=== PATIENT | male | born 1960 | race American Indian/Alaskan Native ===

== ENCOUNTER 2020-12-19 17:55 | Inpatient (IN) | payer OTHER ==
[2020-12-19] MEDS ORDERED: CEFEPIME/NS 1 GM/100 ML 1 GM/100 ML BAG IV ONE (17:57)
[2020-12-19] MEDS ORDERED: methylPREDNISolone Sod Succinate 125 MG/2 ML INJ IV ONE (17:57)
[2020-12-19] MEDS ORDERED: MAGNESIUM SULFATE 2 GM/50 ML BAG IV ONE (17:57)
[2020-12-19] MEDS ORDERED: IPRATROPIUM 0.02% NEBU 2.5 ML IH ONE ×3 (17:57→23:37)
[2020-12-19] MEDS ORDERED: ALBUTEROL 2.5 MG/3 ML NEBU IH ONE ×3 (17:57→23:37)
--- NOTE | 2020-12-19 18:29 | Emergency Department Report ---
ED General Adult HPI - General Chief complaint: Dyspnea/Respdistress Stated complaint: SOB Time Seen by Provider: 12/19/20 17:57 Source: patient Mode of arrival: Stretcher Limitations: No Limitations - History of Present Illness Initial comments: Patient presents to the emergency department chief complaint shortness of breath that started yesterday. Patient has a history of sarcoidosis states he is on steroids secondary to his sarcoidosis. Patient's O2 sats per EMS upon their arrival were 78%. Patient denies any chest pain or abdominal pain. BiPAP was being placed upon me entering the room. The patient is in respiratory distress. -: Gradual Severity scale (0 -10): 0 Consistency: constant Improves with: none Worsens with: none Associated Symptoms: denies other symptoms Treatments Prior to Arrival: none - Related Data Allergies Allergy/AdvReac Type Severity Reaction Status Date / Time shellfish derived Allergy Unknown Verified 12/09/17 04:03 ED Review of Systems ROS: Stated complaint: SOB Other details as noted in HPI Constitutional: denies: chills, fever Eyes: denies: eye pain, eye discharge, vision change ENT: denies: ear pain, throat pain Respiratory: shortness of breath. denies: cough, wheezing Cardiovascular: denies: chest pain, palpitations Endocrine: no symptoms reported Gastrointestinal: denies: abdominal pain, nausea, diarrhea Genitourinary: denies: urgency, dysuria Musculoskeletal: denies: back pain, joint swelling, arthralgia Skin: denies: rash, lesions Neurological: denies: headache, weakness, paresthesias Psychiatric: denies: anxiety, depression Hematological/Lymphatic: denies: easy bleeding, easy bruising ED Past Medical Hx - Past Medical History Previous Medical History?: Yes Hx Asthma: Yes Additional medical history: Sarcoidosis - Social History Smoking Status: Never Smoker Substance Use Type: None (denies illicit drug use), Alcohol (occasional) ED Physical Exam - General Limitations: No Limitations General appearance: alert, in no apparent distress - Head Head exam: Present: atraumatic, normocephalic - Eye Eye exam: Present: normal appearance - ENT ENT exam: Present: mucous membranes moist - Neck Neck exam: Present: normal inspection - Respiratory Respiratory exam: Present: respiratory distress, other (Diminished breath sounds throughout) - Cardiovascular Cardiovascular Exam: Present: normal rhythm, tachycardia. Absent: systolic murmur, diastolic murmur, rubs, gallop - GI/Abdominal GI/Abdominal exam: Present: soft, normal bowel sounds. Absent: distended, tenderness - Rectal Rectal exam: Present: deferred - Extremities Exam Extremities exam: Present: normal inspection - Back Exam Back exam: Present: normal inspection - Neurological Exam Neurological exam: Present: alert, oriented X3 - Psychiatric Psychiatric exam: Present: normal affect, normal mood - Skin Skin exam: Present: warm, dry, intact, normal color. Absent: rash ED Course Vital Signs 12/19/20 12/19/20 12/19/20 17:58 18:01 20:16 Temperature 98.4 F Pulse Rate 106 H 106 H Respiratory 25 H 27 H 26 H Rate Blood Pressure 184/102 165/103 [Right] O2 Sat by Pulse 100 100 100 Oximetry 12/19/20 12/19/20 20:30 22:30 Temperature 98.5 F Pulse Rate 101 H 90 Respiratory 21 23 Rate Blood Pressure 147/88 140/89 [Right] O2 Sat by Pulse 98 96 Oximetry ED Medical Decision Making - Lab Data Result diagrams: 12/19/20 18:13 12/19/20 18:13 Lab Results 12/19/20 12/19/20 12/19/20 Range/Units 18:13 18:13 18:13 WBC 9.3 (4.5-11.0) K/mm3 RBC 4.87 (3.65-5.03) M/mm3 Hgb 12.3 (11.8-15.2) gm/dl Hct 39.4 (35.5-45.6) % MCV 81 L (84-94) fl MCH 25 L (28-32) pg MCHC 31 L (32-34) % RDW 15.5 H (13.2-15.2) % Plt Count 361 (140-440) K/mm3 PT (12.2-14.9) Sec. INR (0.87-1.13) APTT (24.2-36.6) Sec. Sodium 139 (137-145) mmol/L Potassium 3.6 (3.6-5.0) mmol/L Chloride 96.1 L (98-107) mmol/L Carbon Dioxide 30 (22-30) mmol/L Anion Gap 17 mmol/L BUN 10 (9-20) mg/dL Creatinine 0.7 L (0.8-1.3) mg/dL Estimated GFR > 60 ml/min BUN/Creatinine Ratio 14 % Glucose 107 H (75-100) mg/dL Lactic Acid 1.50 (0.7-2.0) mmol/L Calcium 8.2 L (8.4-10.2) mg/dL Magnesium 1.90 (1.7-2.3) mg/dL Total Bilirubin 0.30 (0.1-1.2) mg/dL AST 21 (5-40) units/L ALT 27 (7-56) units/L Alkaline Phosphatase 84 (35-129) units/L Troponin T (0.00-0.029) ng/mL Total Protein 7.0 (6.3-8.2) g/dL Albumin 3.9 (3.9-5) g/dL Albumin/Globulin Ratio 1.3 % 12/19/20 12/19/20 Range/Units 18:13 18:13 WBC (4.5-11.0) K/mm3 RBC (3.65-5.03) M/mm3 Hgb (11.8-15.2) gm/dl Hct (35.5-45.6) % MCV (84-94) fl MCH (28-32) pg MCHC (32-34) % RDW (13.2-15.2) % Plt Count (140-440) K/mm3 PT 14.1 (12.2-14.9) Sec. INR 0.98 (0.87-1.13) APTT 24.1 L (24.2-36.6) Sec. Sodium (137-145) mmol/L Potassium (3.6-5.0) mmol/L Chloride (98-107) mmol/L Carbon Dioxide (22-30) mmol/L Anion Gap mmol/L BUN (9-20) mg/dL Creatinine (0.8-1.3) mg/dL Estimated GFR ml/min BUN/Creatinine Ratio % Glucose (75-100) mg/dL Lactic Acid (0.7-2.0) mmol/L Calcium (8.4-10.2) mg/dL Magnesium (1.7-2.3) mg/dL Total Bilirubin (0.1-1.2) mg/dL AST (5-40) units/L ALT (7-56) units/L Alkaline Phosphatase (35-129) units/L Troponin T < 0.010 (0.00-0.029) ng/mL Total Protein (6.3-8.2) g/dL Albumin (3.9-5) g/dL Albumin/Globulin Ratio % - EKG Data -: EKG Interpreted by Me EKG shows normal: sinus rhythm Rate: tachycardia - Radiology Data Radiology results: report reviewed - Medical Decision Making Patient immediately placed on BiPAP 2 continuous breathing treatments given IV antibiotics given Discussed results with patient ABG pH 7.309 PCO2 64.9 PO2 107.2 Bicarb 31.9 Base excess is 3.7 Critical Care Time: Yes Critical care time in (mins) excluding proc time.: 35 Critical care attestation.: If time is entered above; I have spent that time in minutes in the direct care of this critically ill patient, excluding procedure time. ED Disposition Clinical Impression: Respiratory failure Disposition: ADMITTED INPATIENT Is pt being admited?: Yes Does the pt Need Aspirin: No Condition: Fair Referrals: PRIMARY CARE, [Primary Care Provider] - 3-5 Days
[2020-12-19 18:34] LABS: Hematocrit 39.4 % (35.5-45.6); Hemoglobin 12.3 gm/dl (11.8-15.2); Mean Corpuscular HGB Conc 31 % (32-34); Mean Corpuscular Volume 81 fl (84-94); Platelet Count 361 K/mm3 (140-440); Red Blood Count 4.87 M/mm3 (3.65-5.03); Red Cell Distribution Width 15.5 % (13.2-15.2)
[2020-12-19 18:43] LABS: INR 0.98 (0.87-1.13)
[2020-12-19 18:44] LABS: Partial Thromboplastin Time 24.1 Sec. (24.2-36.6)
--- NOTE | 2020-12-19 18:48 | XRay Report ---
CHEST 1 VIEW 12/19/2020 6:04 PM INDICATION / CLINICAL INFORMATION: Dyspnea. COMPARISON: 12/09/2017 FINDINGS: SUPPORT DEVICES: None. HEART / MEDIASTINUM: No significant abnormality. LUNGS / PLEURA: Cysts and biapical thickening with superior retraction of the isidoro and more localized scarring lateral to the right hilum. Basilar bullous disease. No acute infiltrate No pneumothorax. ADDITIONAL FINDINGS: No significant additional findings. IMPRESSION: Stable chest Signer Name: Alex Whittington MD Signed: 12/19/2020 6:44 PM Workstation Name: [id number]
[2020-12-19 18:50] LABS: Alanine Aminotransferase 27 units/L (7-56); Albumin 3.9 g/dL (3.9-5); BUN/Creatinine Ratio 14; Blood Urea Nitrogen 10 mg/dL (9-20); Calcium 8.2 mg/dL (8.4-10.2); Hemolysis Index 5
--- NOTE | 2020-12-19 23:24 | Cat Scan Report ---
CTA CHEST WITH CONTRAST INDICATION / CLINICAL INFORMATION: sob/hypoxia. TECHNIQUE: Axial CT images were obtained through the chest after injection of Omnipaque 300, 100 cc I V contrast. 3 plane MIP and/or 3D reconstructions were produced. All CT scans at this location are pe rformed using CT dose reduction for ALARA by means of automated exposure control. COMPARISON: CTA chest 12/09/2017. FINDINGS: PULMONARY ARTERIES: Negative for pulmonary embolus. There is chronic truncation of upper lobe pulmona ry arteries right greater than left which is unchanged. THORACIC AORTA: No significant abnormality. HEART: No significant abnormality. CORONARY ARTERY CALCIFICATION: None. MEDIASTINUM / DEBORAH: Prominent mediastinal and hilar calcification. PLEURA: No pleural effusion. No pneumothorax. LUNGS: Persistent apical volume loss with traction bronchiectasis and areas of chronic scarring conta ining soft tissue calcification. Bilateral areas of scarring and mild nodularity remain without signi ficant change. Prominent bullous disease is seen at the right base. ADDITIONAL FINDINGS: None. UPPER ABDOMEN: No acute findings. SKELETAL STRUCTURES: No significant osseous abnormality. IMPRESSION: 1. No CT evidence for pulmonary embolism. 2. Negative for pneumonia. 3. Chronic changes at the lungs, pulmonary arteries and mediastinum/deborah are stable. Signer Name: Alex Whittington MD Signed: 12/19/2020 11:20 PM Workstation Name: [id number]
[2020-12-20] MEDS ORDERED: ALBUTEROL 2.5 MG/3 ML NEBU IH PRN (00:52)
[2020-12-20] MEDS ORDERED: MAGNESIUM HYDROXIDE (MOM) ORAL LIQD UDC PO PRN (00:52)
[2020-12-20] MEDS ORDERED: MORPHINE 2 MG/1 ML INJ IV PRN (00:52)
[2020-12-20] MEDS ORDERED: MORPHINE 4 MG/1 ML INJ IV PRN (00:52)
[2020-12-20] MEDS ORDERED: ONDANSETRON 4 MG/2 ML INJ IV PRN (00:52)
--- NOTE | 2020-12-20 01:05 | History and Physical Report ---
History of Present Illness Date of examination: 12/20/20 Date of admission: 12/20/2020 Chief complaint: Shortness of breath History of present illness: 60-year-old -Mac[place] male with known history of sarcoidosis and asthma presents to the emergency room today complaining of shortness of breath. Shortness of breath has been ongoing for about 24 hours. There is no no relieving or exacerbating factor. In route to the hospital by EMS oxygen saturation was said to be about 78%. He denies any chest pain, no fever or chills, no headache or dizziness and no d iaphoresis. Patient denies any nausea vomiting and no abdominal pain. Upon arrival in the emergency room he was in respiratory distress, found to be wheezing and subsequently placed on BiPAP. He had multiple rounds of nebulizing treatments and IV steroid. Work-up in the emergency room today, ABG was significant for pH of 7.309, PCO2 of 64.9 and PaO2 of 31.9. Other labs were unremarkable. CT angiogram of the chest reveals:1. No CT evidence for pulmonary embolism. 2. Negative for pneumonia. 3. Chronic changes at the lungs, pulmonary arteries and mediastinum/isidoro are stable. Past History Past Medical History: other (Asthma, sarcoidosis) Social history: alcohol abuse (Drinks alcohol occasionally). denies: smoking, IV drug use Family history: no significant family history Medications and Allergies Allergies Allergy/AdvReac Type Severity Reaction Status Date / Time shellfish derived Allergy Unknown Verified 12/09/17 04:03 Active Meds: Active Medications Acetaminophen (Acetaminophen 325 Mg Tab) 650 mg PO Q4H PRN PRN Reason: Pain MILD(1-3)/Fever >100.5/GIBSON Ondansetron HCl (Ondansetron 4 Mg/2 Ml Inj) 4 mg IV Q8H PRN PRN Reason: Nausea And Vomiting Review of Systems Constitutional: no fever, no chills Ears, nose, mouth and throat: no nasal congestion, no sore throat Cardiovascular: no chest pain, no palpitations Respiratory: cough, shortness of breath Gastrointestinal: no abdominal pain, no nausea, no vomiting, no diarrhea Genitourinary Male: no dysuria, no hematuria, no flank pain Musculoskeletal: no neck pain, no low back pain Integumentary: no rash, no pruritis Neurological: no headaches, no confusion Psychiatric: no anxiety, no depression Endocrine: no polyphagia, no polydipsia, no polyuria, no nocturia Exam - Constitutional Vitals: Temp Pulse Resp BP Pulse Ox 98.5 F 90 23 140/89 96 12/19/20 22:30 12/19/20 22:30 12/19/20 22:30 12/19/20 22:30 12/19/20 22:30 General appearance: Present: mild distress, well-nourished - EENT Eyes: Present: PERRL, EOM intact. Absent: scleral icterus ENT: hearing intact, clear oral mucosa, dentition normal - Neck Neck: Present: supple, normal ROM - Respiratory Respiratory effort: labored Respiratory: bilateral: wheezing - Cardiovascular Rhythm: regular Heart Sounds: Present: S1 & S2. Absent: gallop, systolic murmur, diastolic murmur, rub, click - Extremities Extremities: no ischemia, pulses intact, pulses symmetrical, No edema, normal temperature, normal color, Full ROM Peripheral Pulses: within normal limits - Abdominal General gastrointestinal: Present: soft, non-tender, non-distended, normal bowel sounds. Absent: mass - Integumentary Integumentary: Present: clear, warm, dry, normal turgor. Absent: rash - Musculoskeletal Musculoskeletal: strength equal bilaterally - Psychiatric Psychiatric: appropriate mood/affect, intact judgment & insight, memory intact, cooperative - Neurologic Neurologic: CNII-XII intact, no focal deficits, moves all extremities HEART Score - HEART Score Troponin: Troponin T < 0.010 ng/mL (0.00-0.029) 12/19/20 18:13 Results - Labs CBC & Chem 7: 12/19/20 18:13 12/19/20 18:13 Labs: Abnormal lab results 12/19/20 12/19/20 12/19/20 Range/Units 18:13 18:13 18:13 MCV 81 L (84-94) fl MCH 25 L (28-32) pg MCHC 31 L (32-34) % RDW 15.5 H (13.2-15.2) % APTT 24.1 L (24.2-36.6) Sec. ABG pH (7.320-7.450) POC ABG pCO2 (32.0-48.0) mmHg POC ABG pO2 (83-108) mmHg ABG Sodium (136.0-145.0) mmol/L ABG Potassium (3.40-4.50) mmol/L ABG Chloride (98-107) mmol/L ABG Glucose (65-95) mg/dL Carboxyhemoglobin (0.5-1.5) Chloride 96.1 L (98-107) mmol/L Creatinine 0.7 L (0.8-1.3) mg/dL Glucose 107 H (75-100) mg/dL Calcium 8.2 L (8.4-10.2) mg/dL Arterial Blood Glucose (65-95) mg/dL 12/20/20 Range/Units 00:46 MCV (84-94) fl MCH (28-32) pg MCHC (32-34) % RDW (13.2-15.2) % APTT (24.2-36.6) Sec. ABG pH 7.309 L (7.320-7.450) POC ABG pCO2 64.9 H (32.0-48.0) mmHg POC ABG pO2 31.9 L (83-108) mmHg ABG Sodium 134.6 L (136.0-145.0) mmol/L ABG Potassium 4.9 H (3.40-4.50) mmol/L ABG Chloride 96.0 L (98-107) mmol/L ABG Glucose 179 H (65-95) mg/dL Carboxyhemoglobin 0.2 L (0.5-1.5) Chloride (98-107) mmol/L Creatinine (0.8-1.3) mg/dL Glucose (75-100) mg/dL Calcium (8.4-10.2) mg/dL Arterial Blood Glucose 179 H (65-95) mg/dL Assessment and Plan - Patient Problems (1) Respiratory failure Current Visit: Yes Status: Acute Plan to address problem: Possibly secondary to asthma exacerbation. Patient also has underlying history of sarcoidosis. He is currently on BiPAP. Placed on nebulizing treatments and steroids. We will request pulmonology evaluation and recommendations. (2) Hypoxia Current Visit: No Status: Acute Plan to address problem: We will keep O2 saturation greater or equal to 92%. (3) Sarcoidosis Current Visit: No Status: Acute Plan to address problem: We await further evaluation from pulmonology. (4) DVT prophylaxis Current Visit: Yes Status: Acute Plan to address problem: Patient placed on subcutaneous heparin. (5) Full code status Current Visit: Yes Status: Acute Plan to address problem: Patient is full code.
[2020-12-20 01:33] LABS: Total Cells Counted 100
[2020-12-20 01:34] LABS: Hypochromasia 1+
[2020-12-20 01:35] LABS: Platelet Estimate Consistent w Auto
[2020-12-20] MEDS: methylPREDNISolone Sod Succinate 40 MG/1 ML INJ IV SCH ×3 (06:15→21:10)
[2020-12-20] MEDS: HEPARIN 5,000 UNIT/1 ML VIAL SUB-Q SCH ×3 (06:15→21:10)
[2020-12-20] MEDS: IPRATROPIUM/ALBUTEROL SULFATE 3 ML AMPUL.NEB IH SCH ×4 (08:35→20:04)
--- NOTE | 2020-12-20 10:16 | Progress Note ---
Assessment and Plan Assessment and plan: 60-year-old -Chilean male with known history of sarcoidosis and asthma presents to the emergency room today complaining of shortness of breath. Shortness of breath has been ongoing for about 24 hours. There is no no relieving or exacerbating factor. In route to the hospital by EMS oxygen saturation was said to be about 78%. CTA of the chest revealed no evidence for PE and negative for pneumonia. Acute hypoxic respiratory failure Acute asthma exacerbation Sarcoidosis 12/20/2020. Continue bronchodilators/nebulizers. Continue IV steroids. Pulmonary consultation pending. Continue empiric antibiotics for now for possible bronchitis. Patient currently requiring 100% nonrebreather. Continue BiPAP as clinically indicated. History Interval history: No new issues overnight Hospitalist Physical - Constitutional Vitals: Temp Pulse Resp BP Pulse Ox 98.5 F 88 20 134/76 96 12/19/20 22:30 12/20/20 10:08 12/20/20 10:08 12/20/20 09:01 12/20/20 10:08 General appearance: Present: no acute distress, well-nourished - EENT Eyes: Present: PERRL, EOM intact ENT: hearing intact, clear oral mucosa, dentition normal - Neck Neck: Present: supple, normal ROM - Respiratory Respiratory effort: normal Respiratory: bilateral: CTA - Cardiovascular Rhythm: regular Heart Sounds: Present: S1 & S2. Absent: gallop, rub - Extremities Extremities: no ischemia, No edema, Full ROM - Abdominal General gastrointestinal: soft, non-tender, non-distended, normal bowel sounds - Integumentary Integumentary: Present: clear, warm, dry - Neurologic Neurologic: CNII-XII intact, moves all extremities HEART Score - HEART Score Troponin: Troponin T < 0.010 ng/mL (0.00-0.029) 12/19/20 18:13 Results - Labs CBC & Chem 7: 12/19/20 18:13 12/19/20 18:13 Labs: Laboratory Last Values WBC 9.3 K/mm3 (4.5-11.0) 12/19/20 18:13 RBC 4.87 M/mm3 (3.65-5.03) 12/19/20 18:13 Hgb 12.3 gm/dl (11.8-15.2) 12/19/20 18:13 Hct 39.4 % (35.5-45.6) 12/19/20 18:13 MCV 81 fl (84-94) L 12/19/20 18:13 MCH 25 pg (28-32) L 12/19/20 18:13 MCHC 31 % (32-34) L 12/19/20 18:13 RDW 15.5 % (13.2-15.2) H 12/19/20 18:13 Plt Count 361 K/mm3 (140-440) 12/19/20 18:13 Add Manual Diff Complete 12/19/20 18:13 Total Counted 100 12/19/20 18:13 Seg Neuts % (Manual) 83.0 % (40.0-70.0) H 12/19/20 18:13 Lymphocytes % (Manual) 6.0 % (13.4-35.0) L 12/19/20 18:13 Monocytes % (Manual) 8.0 % (0.0-7.3) H 12/19/20 18:13 Eosinophils % (Manual) 3.0 % (0.0-4.3) 12/19/20 18:13 Nucleated RBC % 1.0 % (0.0-0.9) H 12/19/20 18:13 Seg Neutrophils # Man 7.7 K/mm3 (1.8-7.7) 12/19/20 18:13 Band Neutrophils # 0.0 K/mm3 12/19/20 18:13 Lymphocytes # (Manual) 0.6 K/mm3 (1.2-5.4) L 12/19/20 18:13 Abs React Lymphs (Man) 0.0 K/mm3 12/19/20 18:13 Monocytes # (Manual) 0.7 K/mm3 (0.0-0.8) 12/19/20 18:13 Eosinophils # (Manual) 0.3 K/mm3 (0.0-0.4) 12/19/20 18:13 Basophils # (Manual) 0.0 K/mm3 (0.0-0.1) 12/19/20 18:13 Metamyelocytes # 0.0 K/mm3 12/19/20 18:13 Myelocytes # 0.0 K/mm3 12/19/20 18:13 Promyelocytes # 0.0 K/mm3 12/19/20 18:13 Blast Cells # 0.0 K/mm3 12/19/20 18:13 WBC Morphology Not Reportable 12/19/20 18:13 Hypersegmented Neuts Not Reportable 12/19/20 18:13 Hyposegmented Neuts Not Reportable 12/19/20 18:13 Hypogranular Neuts Not Reportable 12/19/20 18:13 Smudge Cells Not Reportable 12/19/20 18:13 Toxic Granulation Not Reportable 12/19/20 18:13 Toxic Vacuolation Not Reportable 12/19/20 18:13 Dohle Bodies Not Reportable 12/19/20 18:13 Pelger-Huet Anomaly Not Reportable 12/19/20 18:13 Charissa Rods Not Reportable 12/19/20 18:13 Platelet Estimate Consistent w auto 12/19/20 18:13 Clumped Platelets Not Reportable 12/19/20 18:13 Plt Clumps, EDTA Not Reportable 12/19/20 18:13 Large Platelets Not Reportable 12/19/20 18:13 Giant Platelets Not Reportable 12/19/20 18:13 Platelet Satelliting Not Reportable 12/19/20 18:13 Plt Morphology Comment Not Reportable 12/19/20 18:13 RBC Morphology Not Reportable 12/19/20 18:13 Dimorphic RBCs Not Reportable 12/19/20 18:13 Polychromasia Not Reportable 12/19/20 18:13 Hypochromasia 1+ 12/19/20 18:13 Poikilocytosis Not Reportable 12/19/20 18:13 Anisocytosis Not Reportable 12/19/20 18:13 Microcytosis Not Reportable 12/19/20 18:13 Macrocytosis Not Reportable 12/19/20 18:13 Spherocytes Not Reportable 12/19/20 18:13 Pappenheimer Bodies Not Reportable 12/19/20 18:13 Sickle Cells Not Reportable 12/19/20 18:13 Target Cells Not Reportable 12/19/20 18:13 Tear Drop Cells Not Reportable 12/19/20 18:13 Ovalocytes Not Reportable 12/19/20 18:13 Helmet Cells Not Reportable 12/19/20 18:13 [place]-Knierim Bodies Not Reportable 12/19/20 18:13 [place] Rings Not Reportable 12/19/20 18:13 [place] Cells Not Reportable 12/19/20 18:13 Bite Cells Not Reportable 12/19/20 18:13 Crenated Cell Not Reportable 12/19/20 18:13 Elliptocytes Not Reportable 12/19/20 18:13 Acanthocytes (Spur) Not Reportable 12/19/20 18:13 Rouleaux Not Reportable 12/19/20 18:13 Hemoglobin C Crystals Not Reportable 12/19/20 18:13 Schistocytes Not Reportable 12/19/20 18:13 Malaria parasites Not Reportable 12/19/20 18:13 Mian Bodies Not Reportable 12/19/20 18:13 Hem Pathologist Commnt No 12/19/20 18:13 PT 14.1 Sec. (12.2-14.9) 12/19/20 18:13 INR 0.98 (0.87-1.13) 12/19/20 18:13 APTT 24.1 Sec. (24.2-36.6) L 12/19/20 18:13 ABG pH 7.309 (7.320-7.450) L 12/20/20 00:46 POC ABG pCO2 64.9 mmHg (32.0-48.0) H 12/20/20 00:46 POC ABG pO2 31.9 mmHg (83-108) L 12/20/20 00:46 POC ABG HCO3 31.9 12/20/20 00:46 ABG O2 Saturation 97.7 (0-100) 12/20/20 00:46 POC ABG Base Excess 3.7 12/20/20 00:46 ABG Hemoglobin 13.9 (12.0-17.5) 12/20/20 00:46 ABG Oxyhemoglobin 97.2 (94-98) 12/20/20 00:46 ABG Methemoglobin 0.3 (0.0-1.5) 12/20/20 00:46 ABG Sodium 134.6 mmol/L (136.0-145.0) L 12/20/20 00:46 ABG Potassium 4.9 mmol/L (3.40-4.50) H 12/20/20 00:46 ABG Chloride 96.0 mmol/L (98-107) L 12/20/20 00:46 ABG Glucose 179 mg/dL (65-95) H 12/20/20 00:46 Carboxyhemoglobin 0.2 (0.5-1.5) L 12/20/20 00:46 FiO2 % 40 12/20/20 00:46 Sodium 139 mmol/L (137-145) 12/19/20 18:13 Potassium 3.6 mmol/L (3.6-5.0) 12/19/20 18:13 Chloride 96.1 mmol/L (98-107) L 12/19/20 18:13 Carbon Dioxide 30 mmol/L (22-30) 12/19/20 18:13 Anion Gap 17 mmol/L 12/19/20 18:13 BUN 10 mg/dL (9-20) 12/19/20 18:13 Creatinine 0.7 mg/dL (0.8-1.3) L 12/19/20 18:13 Estimated GFR > 60 ml/min 12/19/20 18:13 BUN/Creatinine Ratio 14 % 12/19/20 18:13 Glucose 107 mg/dL (75-100) H 12/19/20 18:13 Lactic Acid 1.50 mmol/L (0.7-2.0) 12/19/20 18:13 Calcium 8.2 mg/dL (8.4-10.2) L 12/19/20 18:13 Magnesium 1.90 mg/dL (1.7-2.3) 12/19/20 18:13 Total Bilirubin 0.30 mg/dL (0.1-1.2) 12/19/20 18:13 AST 21 units/L (5-40) 12/19/20 18:13 ALT 27 units/L (7-56) 12/19/20 18:13 Alkaline Phosphatase 84 units/L (35-129) 12/19/20 18:13 Troponin T < 0.010 ng/mL (0.00-0.029) 12/19/20 18:13 Total Protein 7.0 g/dL (6.3-8.2) 12/19/20 18:13 Albumin 3.9 g/dL (3.9-5) 12/19/20 18:13 Albumin/Globulin Ratio 1.3 % 12/19/20 18:13 Arterial Blood Glucose 179 mg/dL (65-95) H 12/20/20 00:46 Microbiology: Microbiology 12/19/20 18:13 Peripheral/Venous Blood Culture - Preliminary Culture in Progress 12/19/20 18:13 Peripheral/Venous Blood Culture - Preliminary Culture in Progress Active Medications - Current Medications Current Medications: Generic Name Dose Route Start Last Admin Trade Name Freq PRN Reason Stop Dose Admin Acetaminophen 650 mg 12/20/20 00:52 Acetaminophen 325 Mg Tab PO Q4H PRN Pain MILD(1-3)/Fever >100.5/GIBSON Albuterol 2.5 mg 12/20/20 00:52 Albuterol 2.5 Mg/3 Ml Nebu IH Q3HRT PRN Shortness Of Breath Albuterol/Ipratropium 1 ampul 12/20/20 02:00 12/20/20 09:00 Ipratropium/Albuterol Sulfate 3 Ml Ampul.Neb IH Not Given Q6HRT DIAMOND Heparin Sodium (Porcine) 5,000 unit 12/20/20 06:00 12/20/20 06:15 Heparin 5,000 Unit/1 Ml Vial SUB-Q 5,000 unit Q8HR DIAMOND Administration Magnesium Hydroxide 30 ml 12/20/20 00:52 Magnesium Hydroxide (Mom) Oral Liqd Udc PO Q4H PRN Constipation Methylprednisolone Sodium Succinate 40 mg 12/20/20 06:00 12/20/20 06:15 Methylprednisolone Sod Succinate 40 Mg/1 Ml Inj IV 40 mg Q8HR DIAMOND Administration Morphine Sulfate 2 mg 12/20/20 00:52 Morphine 2 Mg/1 Ml Inj IV Q4H PRN Pain, Moderate (4-6) Morphine Sulfate 4 mg 12/20/20 00:52 Morphine 4 Mg/1 Ml Inj IV Q4H PRN Pain , Severe (7-10) Ondansetron HCl 4 mg 12/20/20 00:52 Ondansetron 4 Mg/2 Ml Inj IV Q8H PRN Nausea And Vomiting Sodium Chloride 10 ml 12/20/20 10:00 Sodium Chloride 0.9% 10 Ml Flush Syringe IV BID DIAMOND Sodium Chloride 10 ml 12/20/20 00:52 Sodium Chloride 0.9% 10 Ml Flush Syringe IV PRN PRN LINE FLUSH
[2020-12-20] MEDS: ACETAMINOPHEN 325 MG TAB PO PRN (14:23)
[2020-12-20 15:05] LABS: ABG PCO2 66.2 mm Hg; ABG PH 7.347 pH Units (7.350-7.450); ABG PO2 167.6 mm Hg (80.0-90.0)
[2020-12-20 15:06] LABS: ABG Base Excess 7.7 mmol/L (-2.0-3.0); ABG HCO3 35.5 mmol/L (20.0-26.0); ABG Methemoglobin 0.5 % (0.0-1.5); ABG Oxygen Saturation 98.9 % (95.0-99.0)
--- NOTE | 2020-12-20 22:06 | Event Note ---
Date: 12/20/20 We were consulted for ICU management. However, this patient left our practice in 2017 and we are not threat monitoring analyst for ICU consults. Advised Dr. Renteria of the same today at 12:47pm and asked him to consult Dr. Mcfarland's pulmonary group instead.
[2020-12-21] MEDS: IPRATROPIUM/ALBUTEROL SULFATE 3 ML AMPUL.NEB IH SCH ×7 (02:00→23:26)
[2020-12-21] MEDS: HEPARIN 5,000 UNIT/1 ML VIAL SUB-Q SCH ×3 (05:53→21:41)
[2020-12-21] MEDS: methylPREDNISolone Sod Succinate 40 MG/1 ML INJ IV SCH ×3 (05:53→21:41)
[2020-12-21 07:24] LABS: Basophils % (Auto) 0.1 % (0.0-1.8); Hematocrit 38.6 % (35.5-45.6); Hemoglobin 12.4 gm/dl (11.8-15.2); Lymphocytes # (Auto) 0.2 K/mm3 (1.2-5.4); Lymphocytes % (Auto) 2.1 % (13.4-35.0); Mean Corpuscular HGB Conc 32 % (32-34); Mean Corpuscular Volume 83 fl (84-94); Monocytes # (Auto) 0.8 K/mm3 (0.0-0.8); Monocytes % (Auto) 8.4 % (0.0-7.3); Platelet Count 372 K/mm3 (140-440); Red Blood Count 4.68 M/mm3 (3.65-5.03); Red Cell Distribution Width 14.9 % (13.2-15.2)
[2020-12-21 07:44] LABS: Blood Urea Nitrogen 20 mg/dL (9-20); Calcium 8.6 mg/dL (8.4-10.2); Hemolysis Index 11
[2020-12-21 07:45] LABS: BUN/Creatinine Ratio 29
[2020-12-21] MEDS: ACETAMINOPHEN 325 MG TAB PO PRN (10:30)
[2020-12-21] MEDS ORDERED: FLU VACC QUAD 2021-22(6MOS UP)/PF 60 MCG/0.5 ML SYRINGE IM ONE ×2 (12:00→15:00)
[2020-12-21] MEDS ORDERED: SODIUM POLYSTYRENE 15 GM/60 ML ORAL LIQD PO ONE (12:20)
--- NOTE | 2020-12-21 12:22 | Progress Note ---
Assessment and Plan Assessment and plan: This is a 60-year-old AA male with past medical history of sarcoidosis and asthma presents to the emergency room complaining of shortness of breath [id number]. Patient was found hypoxic in the ED requiring Bipap. Pt. was admitted for acute hypoxic respiratory failure and acute asthma exacerbation. Hospital Course to Date 12/20/2020. Continue bronchodilators/nebulizers. Continue IV steroids. Pulmonary consultation pending. Continue empiric antibiotics for now for possible bronchitis. Patient currently requiring 100% nonrebreather. Continue BiPAP as clinically indicated. 12/21/20- Patient on 4L NC this am, in stable condition. Continue current treatment- Nebx treatment, and IV steroids for now. Wean O2 supplement as tolerated for SPO2 above 92%. Patient is stable for transfer to the floor. Assessment and Plan #Acute Hypoxic Respiratory Failure #Acute Asthma Exacerbation #H/o Sarcoidosis - required Continuous BIPAP - 12/19 CTA chest- neg PE. Chronic changes at the lungs, pulmonary arteries and mediastinum/isidoro are stable - COVID neg - Currently on 4L NC this AM, SPO2 97 to 100% - Aspiration precaution HOB above 30 - Continue SPO2 monitoring for SPO2 goal above 92% - BIPAP as needed - Pulmonary consulted #DVT prophylaxis - Continue AC- Hep SubQ and SCDs for VTE proph The high probability of a clinically significant, sudden or life threatening deterioration of the [Respiratory] system(s) required my full and direct attention, intervention and personal management. The aggregate critical care time was [30] minutes. This time is in addition to time spent performing reported procedures but includes the following: [x] Data Review and interpretation [x] Patient assessment and monitoring of vital signs [x] Documentation [x] Medication orders and management Disposition Plan: ICU Total Time Spent with Patient (Minutes): 30 History Interval history: Patient is seen and examined at the bedside. Fully AAO, on 4L NC, stated he is doing much better today. TIO overnight Hospitalist Physical - Constitutional Vitals: Temp Pulse Resp BP Pulse Ox 98.1 F 76 20 126/84 100 12/21/20 08:00 12/21/20 12:01 12/21/20 12:01 12/21/20 12:01 12/21/20 12:01 General appearance: Present: no acute distress, well-nourished - EENT Eyes: Present: PERRL, EOM intact ENT: hearing intact, clear oral mucosa - Neck Neck: Present: normal ROM - Respiratory Respiratory effort: normal Respiratory: bilateral: wheezing - Cardiovascular Rhythm: regular Heart Sounds: Present: S1 & S2 - Extremities Extremities: no ischemia, pulses intact, pulses symmetrical Extremity abnormal: edema - Peripheral Assessment Generalized Edema Type: Non-pitting Edema Degree: 1+ Capillary Refill: < 3 seconds Skin Temperature: Warm Peripheral Pulses: within normal limits - Abdominal General gastrointestinal: soft, non-tender, normal bowel sounds - Integumentary Integumentary: Present: clear, warm, dry - Psychiatric Psychiatric: appropriate mood/affect, cooperative - Neurologic Neurologic: CNII-XII intact, moves all extremities - Allied Health Allied health notes reviewed: nursing HEART Score - HEART Score Troponin: Troponin T < 0.010 ng/mL (0.00-0.029) 12/19/20 18:13 Results - Labs CBC & Chem 7: 12/21/20 07:00 12/21/20 07:00 Labs: Laboratory Last Values WBC 9.9 K/mm3 (4.5-11.0) 12/21/20 07:00 RBC 4.68 M/mm3 (3.65-5.03) 12/21/20 07:00 Hgb 12.4 gm/dl (11.8-15.2) 12/21/20 07:00 Hct 38.6 % (35.5-45.6) 12/21/20 07:00 MCV 83 fl (84-94) L 12/21/20 07:00 MCH 26 pg (28-32) L 12/21/20 07:00 MCHC 32 % (32-34) 12/21/20 07:00 RDW 14.9 % (13.2-15.2) 12/21/20 07:00 Plt Count 372 K/mm3 (140-440) 12/21/20 07:00 Lymph % (Auto) 2.1 % (13.4-35.0) L 12/21/20 07:00 [place] % (Auto) 8.4 % (0.0-7.3) H 12/21/20 07:00 Eos % (Auto) 0.0 % (0.0-4.3) 12/21/20 07:00 Baso % (Auto) 0.1 % (0.0-1.8) 12/21/20 07:00 Lymph # (Auto) 0.2 K/mm3 (1.2-5.4) L 12/21/20 07:00 [place] # (Auto) 0.8 K/mm3 (0.0-0.8) 12/21/20 07:00 Eos # (Auto) 0.0 K/mm3 (0.0-0.4) 12/21/20 07:00 Baso # (Auto) 0.0 K/mm3 (0.0-0.1) 12/21/20 07:00 Add Manual Diff Complete 12/19/20 18:13 Total Counted 100 12/19/20 18:13 Seg Neutrophils % 89.4 % (40.0-70.0) H 12/21/20 07:00 Seg Neuts % (Manual) 83.0 % (40.0-70.0) H 12/19/20 18:13 Lymphocytes % (Manual) 6.0 % (13.4-35.0) L 12/19/20 18:13 Monocytes % (Manual) 8.0 % (0.0-7.3) H 12/19/20 18:13 Eosinophils % (Manual) 3.0 % (0.0-4.3) 12/19/20 18:13 Nucleated RBC % 1.0 % (0.0-0.9) H 12/19/20 18:13 Seg Neutrophils # 8.9 K/mm3 (1.8-7.7) H 12/21/20 07:00 Seg Neutrophils # Man 7.7 K/mm3 (1.8-7.7) 12/19/20 18:13 Band Neutrophils # 0.0 K/mm3 12/19/20 18:13 Lymphocytes # (Manual) 0.6 K/mm3 (1.2-5.4) L 12/19/20 18:13 Abs React Lymphs (Man) 0.0 K/mm3 12/19/20 18:13 Monocytes # (Manual) 0.7 K/mm3 (0.0-0.8) 12/19/20 18:13 Eosinophils # (Manual) 0.3 K/mm3 (0.0-0.4) 12/19/20 18:13 Basophils # (Manual) 0.0 K/mm3 (0.0-0.1) 12/19/20 18:13 Metamyelocytes # 0.0 K/mm3 12/19/20 18:13 Myelocytes # 0.0 K/mm3 12/19/20 18:13 Promyelocytes # 0.0 K/mm3 12/19/20 18:13 Blast Cells # 0.0 K/mm3 12/19/20 18:13 WBC Morphology Not Reportable 12/19/20 18:13 Hypersegmented Neuts Not Reportable 12/19/20 18:13 Hyposegmented Neuts Not Reportable 12/19/20 18:13 Hypogranular Neuts Not Reportable 12/19/20 18:13 Smudge Cells Not Reportable 12/19/20 18:13 Toxic Granulation Not Reportable 12/19/20 18:13 Toxic Vacuolation Not Reportable 12/19/20 18:13 Dohle Bodies Not Reportable 12/19/20 18:13 Pelger-Huet Anomaly Not Reportable 12/19/20 18:13 Charissa Rods Not Reportable 12/19/20 18:13 Platelet Estimate Consistent w auto 12/19/20 18:13 Clumped Platelets Not Reportable 12/19/20 18:13 Plt Clumps, EDTA Not Reportable 12/19/20 18:13 Large Platelets Not Reportable 12/19/20 18:13 Giant Platelets Not Reportable 12/19/20 18:13 Platelet Satelliting Not Reportable 12/19/20 18:13 Plt Morphology Comment Not Reportable 12/19/20 18:13 RBC Morphology Not Reportable 12/19/20 18:13 Dimorphic RBCs Not Reportable 12/19/20 18:13 Polychromasia Not Reportable 12/19/20 18:13 Hypochromasia 1+ 12/19/20 18:13 Poikilocytosis Not Reportable 12/19/20 18:13 Anisocytosis Not Reportable 12/19/20 18:13 Microcytosis Not Reportable 12/19/20 18:13 Macrocytosis Not Reportable 12/19/20 18:13 Spherocytes Not Reportable 12/19/20 18:13 Pappenheimer Bodies Not Reportable 12/19/20 18:13 Sickle Cells Not Reportable 12/19/20 18:13 Target Cells Not Reportable 12/19/20 18:13 Tear Drop Cells Not Reportable 12/19/20 18:13 Ovalocytes Not Reportable 12/19/20 18:13 Helmet Cells Not Reportable 12/19/20 18:13 [place] Bodies Not Reportable 12/19/20 18:13 [place] Rings Not Reportable 12/19/20 18:13 [place] Cells Not Reportable 12/19/20 18:13 Bite Cells Not Reportable 12/19/20 18:13 Crenated Cell Not Reportable 12/19/20 18:13 Elliptocytes Not Reportable 12/19/20 18:13 Acanthocytes (Spur) Not Reportable 12/19/20 18:13 Rouleaux Not Reportable 12/19/20 18:13 Hemoglobin C Crystals Not Reportable 12/19/20 18:13 Schistocytes Not Reportable 12/19/20 18:13 Malaria parasites Not Reportable 12/19/20 18:13 Mian Bodies Not Reportable 12/19/20 18:13 Hem Pathologist Commnt No 12/19/20 18:13 PT 14.1 Sec. (12.2-14.9) 12/19/20 18:13 INR 0.98 (0.87-1.13) 12/19/20 18:13 APTT 24.1 Sec. (24.2-36.6) L 12/19/20 18:13 ABG pH 7.347 pH Units (7.350-7.450) L 12/20/20 11:39 POC ABG pCO2 64.9 mmHg (32.0-48.0) H 12/20/20 00:46 ABG pCO2 66.2 mm Hg 12/20/20 11:39 POC ABG pO2 31.9 mmHg (83-108) L 12/20/20 00:46 ABG pO2 167.6 mm Hg (80.0-90.0) H 12/20/20 11:39 POC ABG HCO3 31.9 12/20/20 00:46 ABG HCO3 35.5 mmol/L (20.0-26.0) H 12/20/20 11:39 ABG O2 Saturation 98.9 % (95.0-99.0) 12/20/20 11:39 POC ABG Base Excess 3.7 12/20/20 00:46 ABG Base Excess 7.7 mmol/L (-2.0-3.0) H 12/20/20 11:39 ABG Hemoglobin 13.0 gm/dl (14.0-18.0) L 12/20/20 11:39 ABG Oxyhemoglobin 97.2 (94-98) 12/20/20 00:46 ABG Carboxyhemoglobin 1.2 % (0.0-5.0) 12/20/20 11:39 ABG Methemoglobin 0.5 % (0.0-1.5) 12/20/20 11:39 ABG Sodium 134.6 mmol/L (136.0-145.0) L 12/20/20 00:46 ABG Potassium 4.9 mmol/L (3.40-4.50) H 12/20/20 00:46 ABG Chloride 96.0 mmol/L (98-107) L 12/20/20 00:46 ABG Glucose 179 mg/dL (65-95) H 12/20/20 00:46 Oxyhemoglobin 97.2 % (95.0-99.0) 12/20/20 11:39 Carboxyhemoglobin 0.2 (0.5-1.5) L 12/20/20 00:46 FiO2 36 % 12/20/20 11:39 FiO2 % 40 12/20/20 00:46 Sodium 139 mmol/L (137-145) 12/21/20 07:00 Potassium 5.3 mmol/L (3.6-5.0) H D 12/21/20 07:00 Chloride 96.0 mmol/L (98-107) L 12/21/20 07:00 Carbon Dioxide 35 mmol/L (22-30) H 12/21/20 07:00 Anion Gap 13 mmol/L 12/21/20 07:00 BUN 20 mg/dL (9-20) 12/21/20 07:00 Creatinine 0.7 mg/dL (0.8-1.3) L 12/21/20 07:00 Estimated GFR > 60 ml/min 12/21/20 07:00 BUN/Creatinine Ratio 29 % 12/21/20 07:00 Glucose 136 mg/dL (75-100) H 12/21/20 07:00 Lactic Acid 1.50 mmol/L (0.7-2.0) 12/19/20 18:13 Calcium 8.6 mg/dL (8.4-10.2) 12/21/20 07:00 Magnesium 1.90 mg/dL (1.7-2.3) 12/19/20 18:13 Total Bilirubin 0.30 mg/dL (0.1-1.2) 12/19/20 18:13 AST 21 units/L (5-40) 12/19/20 18:13 ALT 27 units/L (7-56) 12/19/20 18:13 Alkaline Phosphatase 84 units/L (35-129) 12/19/20 18:13 Troponin T < 0.010 ng/mL (0.00-0.029) 12/19/20 18:13 Total Protein 7.0 g/dL (6.3-8.2) 12/19/20 18:13 Albumin 3.9 g/dL (3.9-5) 12/19/20 18:13 Albumin/Globulin Ratio 1.3 % 12/19/20 18:13 Arterial Blood Glucose 179 mg/dL (65-95) H 12/20/20 00:46 Coronavirus (PCR) Negative (Negative) 12/20/20 Unknown Microbiology: Microbiology 12/19/20 18:13 Peripheral/Venous Blood Culture - Preliminary NO GROWTH AFTER 24 HOURS 12/19/20 18:13 Peripheral/Venous Blood Culture - Preliminary NO GROWTH AFTER 24 HOURS [place]/IV: Voiding Method Urinal Active Medications - Current Medications Current Medications: Generic Name Dose Route Start Last Admin Trade Name Freq PRN Reason Stop Dose Admin Acetaminophen 650 mg 12/20/20 00:52 12/21/20 10:30 Acetaminophen 325 Mg Tab PO 650 mg Q4H PRN Administration Pain MILD(1-3)/Fever >100.5/GIBSON Albuterol 2.5 mg 12/20/20 00:52 Albuterol 2.5 Mg/3 Ml Nebu IH Q3HRT PRN Shortness Of Breath Albuterol/Ipratropium 1 ampul 12/21/20 04:00 12/21/20 08:50 Ipratropium/Albuterol Sulfate 3 Ml Ampul.Neb IH 1 ampul Q4HRT DIAMOND Administration Heparin Sodium (Porcine) 5,000 unit 12/20/20 06:00 12/21/20 05:53 Heparin 5,000 Unit/1 Ml Vial SUB-Q 5,000 unit Q8HR DIAMOND Administration Magnesium Hydroxide 30 ml 12/20/20 00:52 Magnesium Hydroxide (Mom) Oral Liqd Udc PO Q4H PRN Constipation Methylprednisolone Sodium Succinate 40 mg 12/20/20 06:00 12/21/20 05:53 Methylprednisolone Sod Succinate 40 Mg/1 Ml Inj IV 40 mg Q8HR DIAMOND Administration Morphine Sulfate 2 mg 12/20/20 00:52 Morphine 2 Mg/1 Ml Inj IV Q4H PRN Pain, Moderate (4-6) Morphine Sulfate 4 mg 12/20/20 00:52 Morphine 4 Mg/1 Ml Inj IV Q4H PRN Pain , Severe (7-10) Ondansetron HCl 4 mg 12/20/20 00:52 Ondansetron 4 Mg/2 Ml Inj IV Q8H PRN Nausea And Vomiting Sodium Chloride 10 ml 12/20/20 10:00 12/21/20 10:31 Sodium Chloride 0.9% 10 Ml Flush Syringe IV 10 ml BID DIAMOND Administration Sodium Chloride 10 ml 12/20/20 00:52 Sodium Chloride 0.9% 10 Ml Flush Syringe IV PRN PRN LINE FLUSH Sodium Polystyrene Sulfonate 15 gm 12/21/20 12:20 Sodium Polystyrene 15 Gm/60 Ml Oral Liqd PO 12/21/20 12:21 ONCE ONE
[2020-12-22] MEDS: IPRATROPIUM/ALBUTEROL SULFATE 3 ML AMPUL.NEB IH SCH ×6 (04:34→23:46)
[2020-12-22] MEDS: HEPARIN 5,000 UNIT/1 ML VIAL SUB-Q SCH ×3 (05:08→21:02)
[2020-12-22] MEDS: methylPREDNISolone Sod Succinate 40 MG/1 ML INJ IV SCH ×3 (05:08→21:01)
[2020-12-22 05:13] LABS: Hematocrit 39.9 % (35.5-45.6); Hemoglobin 12.6 gm/dl (11.8-15.2); Mean Corpuscular HGB Conc 31 % (32-34); Mean Corpuscular Volume 83 fl (84-94); Platelet Count 358 K/mm3 (140-440); Red Blood Count 4.82 M/mm3 (3.65-5.03)
[2020-12-22 05:42] LABS: BUN/Creatinine Ratio 33; Blood Urea Nitrogen 23 mg/dL (9-20); Calcium 8.7 mg/dL (8.4-10.2); Hemolysis Index 7
[2020-12-22] MEDS: ACETAMINOPHEN 325 MG TAB PO PRN (07:59)
[2020-12-22] MEDS ORDERED: SODIUM POLYSTYRENE 15 GM/60 ML ORAL LIQD PO ONE (11:00)
[2020-12-22] MEDS ORDERED: oxyCODONE /ACETAMINOPHEN 5-325MG TAB PO PRN (11:00)
--- NOTE | 2020-12-22 16:48 | Progress Note ---
Assessment and Plan Assessment and plan: This is a 60-year-old male with sarcoidosis and asthma admitted with acute hypoxic respiratory failure and acute asthma exacerbation. Neuro: NAD -Patient is alert and oriented x4, moves all extremities -Avoid delirium -Maintain sleep-wake cycle -Reorientation as needed -Analgesics as needed Cardio: NAD -Blood pressure monitor per protocol -Patient is in sinus rhythm on monitor normotensive Pulm: Acute Hypoxic Respiratory Failure, Acute Asthma Exacerbation, h/o sarcodosis -s/p continuous BIPAP -BiPAP prn -Supplemental oxygenation as needed -Pulmonary hygiene -12/19 CTA chest- neg PE. Chronic changes at the lungs, pulmonary arteries and mediastinum/isidoro are stable -Solu-Medrol 40 mg every 8 started on 12/20 -Albuterol as needed -Restarted home Singulair GI: NAD -Patient is on regular diet -24 hours -2225 mL -BR: Senokot -PPI : Hyperkalemia (resolved) -Trend BMP -Monitor urine no -Intervene with electrolytes as needed ID: NAD -Monitor fever and WBC curve Endo: NAD -Avoid hypoglycemia Heme: NAD -Hep SubQ -SCD to BLE while in bed -Transfuse to hemoglobin less than 7 -Trend CBC The high probability of a clinically significant, sudden or life threatening de terioration of the [Respiratory] system(s) required my full and direct attention, intervention and personal management. The aggregate critical care time was [30] minutes. This time is in addition to time spent performing reported procedures but includes the following: [x] Data Review and interpretation [x] Patient assessment and monitoring of vital signs [x] Documentation [x] Medication orders and management Disposition Plan: transfer to floor Total Time Spent with Patient (Minutes): 60 History Interval history: This is a 60-year-old male with past medical history of sarcoidosis and asthma presents to the emergency room complaining of shortness of breath X 24hours. Patient was found hypoxic in the ED requiring Bipap. Upon arrival in the emergency room he was in respiratory distress, found to be wheezing and subsequently placed on BiPAP and he had multiple rounds of nebulizing treatments and IV steroid. Work-up in the emergency room revealed hypoxia and a CT angiogram was negative for pneumonia but showed chronic lung changes, pulmonary arteries and mediastinum/isidoro which were stable. Pt. was admitted for acute hypoxic respiratory failure and acute asthma exacerbation. Hospital Course to Date 12/20/2020. Continue bronchodilators/nebulizers. Continue IV steroids. Pulmonary consultation pending. Continue empiric antibiotics for now for possible bronchitis. Patient currently requiring 100% nonrebreather. Continue BiPAP as clinically indicated. 12/21/20- Patient on 4L NC this am, in stable condition. Continue current treatment- Nebx treatment, and IV steroids for now. Wean O2 supplement as tolerated for SPO2 above 92%. Patient is stable for transfer to the floor. 12/22: No acute events overnight. Awaiting transfer to floor. Remains on NC Hospitalist Physical - Constitutional Vitals: Temp Pulse Resp BP Pulse Ox 98.3 F 84 22 138/82 91 12/22/20 12:00 12/22/20 16:39 12/22/20 16:39 12/22/20 13:00 12/22/20 13:00 General appearance: Present: no acute distress, well-nourished - EENT Eyes: Present: PERRL, EOM intact ENT: hearing intact, clear oral mucosa - Neck Neck: Present: normal ROM - Respiratory Respiratory effort: normal Respiratory: bilateral: rhonchi - Cardiovascular Rhythm: regular Heart Sounds: Present: S1 & S2 - Extremities Extremities: no ischemia, pulses intact, pulses symmetrical, No edema, normal temperature, normal color, Full ROM Peripheral Pulses: within normal limits - Abdominal General gastrointestinal: soft, non-tender, non-distended, normal bowel sounds - Integumentary Integumentary: Present: warm, dry - Psychiatric Psychiatric: cooperative - Neurologic Neurologic: CNII-XII intact, no focal deficits, moves all extremities - Allied Health Allied health notes reviewed: nursing, RT, social work HEART Score - HEART Score Troponin: Troponin T < 0.010 ng/mL (0.00-0.029) 12/19/20 18:13 Results - Labs CBC & Chem 7: 12/22/20 04:30 12/22/20 04:30 Labs: Laboratory Last Values WBC 8.7 K/mm3 (4.5-11.0) 12/22/20 04:30 RBC 4.82 M/mm3 (3.65-5.03) 12/22/20 04:30 Hgb 12.6 gm/dl (11.8-15.2) 12/22/20 04:30 Hct 39.9 % (35.5-45.6) 12/22/20 04:30 MCV 83 fl (84-94) L 12/22/20 04:30 MCH 26 pg (28-32) L 12/22/20 04:30 MCHC 31 % (32-34) L 12/22/20 04:30 RDW 15.0 % (13.2-15.2) 12/22/20 04:30 Plt Count 358 K/mm3 (140-440) 12/22/20 04:30 Lymph % (Auto) 2.1 % (13.4-35.0) L 12/21/20 07:00 [place] % (Auto) 8.4 % (0.0-7.3) H 12/21/20 07:00 Eos % (Auto) 0.0 % (0.0-4.3) 12/21/20 07:00 Baso % (Auto) 0.1 % (0.0-1.8) 12/21/20 07:00 Lymph # (Auto) 0.2 K/mm3 (1.2-5.4) L 12/21/20 07:00 [place] # (Auto) 0.8 K/mm3 (0.0-0.8) 12/21/20 07:00 Eos # (Auto) 0.0 K/mm3 (0.0-0.4) 12/21/20 07:00 Baso # (Auto) 0.0 K/mm3 (0.0-0.1) 12/21/20 07:00 Add Manual Diff Complete 12/19/20 18:13 Total Counted 100 12/19/20 18:13 Seg Neutrophils % 89.4 % (40.0-70.0) H 12/21/20 07:00 Seg Neuts % (Manual) 83.0 % (40.0-70.0) H 12/19/20 18:13 Lymphocytes % (Manual) 6.0 % (13.4-35.0) L 12/19/20 18:13 Monocytes % (Manual) 8.0 % (0.0-7.3) H 12/19/20 18:13 Eosinophils % (Manual) 3.0 % (0.0-4.3) 12/19/20 18:13 Nucleated RBC % 1.0 % (0.0-0.9) H 12/19/20 18:13 Seg Neutrophils # 8.9 K/mm3 (1.8-7.7) H 12/21/20 07:00 Seg Neutrophils # Man 7.7 K/mm3 (1.8-7.7) 12/19/20 18:13 Band Neutrophils # 0.0 K/mm3 12/19/20 18:13 Lymphocytes # (Manual) 0.6 K/mm3 (1.2-5.4) L 12/19/20 18:13 Abs React Lymphs (Man) 0.0 K/mm3 12/19/20 18:13 Monocytes # (Manual) 0.7 K/mm3 (0.0-0.8) 12/19/20 18:13 Eosinophils # (Manual) 0.3 K/mm3 (0.0-0.4) 12/19/20 18:13 Basophils # (Manual) 0.0 K/mm3 (0.0-0.1) 12/19/20 18:13 Metamyelocytes # 0.0 K/mm3 12/19/20 18:13 Myelocytes # 0.0 K/mm3 12/19/20 18:13 Promyelocytes # 0.0 K/mm3 12/19/20 18:13 Blast Cells # 0.0 K/mm3 12/19/20 18:13 WBC Morphology Not Reportable 12/19/20 18:13 Hypersegmented Neuts Not Reportable 12/19/20 18:13 Hyposegmented Neuts Not Reportable 12/19/20 18:13 Hypogranular Neuts Not Reportable 12/19/20 18:13 Smudge Cells Not Reportable 12/19/20 18:13 Toxic Granulation Not Reportable 12/19/20 18:13 Toxic Vacuolation Not Reportable 12/19/20 18:13 Dohle Bodies Not Reportable 12/19/20 18:13 Pelger-Huet Anomaly Not Reportable 12/19/20 18:13 Charissa Rods Not Reportable 12/19/20 18:13 Platelet Estimate Consistent w auto 12/19/20 18:13 Clumped Platelets Not Reportable 12/19/20 18:13 Plt Clumps, EDTA Not Reportable 12/19/20 18:13 Large Platelets Not Reportable 12/19/20 18:13 Giant Platelets Not Reportable 12/19/20 18:13 Platelet Satelliting Not Reportable 12/19/20 18:13 Plt Morphology Comment Not Reportable 12/19/20 18:13 RBC Morphology Not Reportable 12/19/20 18:13 Dimorphic RBCs Not Reportable 12/19/20 18:13 Polychromasia Not Reportable 12/19/20 18:13 Hypochromasia 1+ 12/19/20 18:13 Poikilocytosis Not Reportable 12/19/20 18:13 Anisocytosis Not Reportable 12/19/20 18:13 Microcytosis Not Reportable 12/19/20 18:13 Macrocytosis Not Reportable 12/19/20 18:13 Spherocytes Not Reportable 12/19/20 18:13 Pappenheimer Bodies Not Reportable 12/19/20 18:13 Sickle Cells Not Reportable 12/19/20 18:13 Target Cells Not Reportable 12/19/20 18:13 Tear Drop Cells Not Reportable 12/19/20 18:13 Ovalocytes Not Reportable 12/19/20 18:13 Helmet Cells Not Reportable 12/19/20 18:13 [place] Bodies Not Reportable 12/19/20 18:13 Stella Rings Not Reportable 12/19/20 18:13 [place] Cells Not Reportable 12/19/20 18:13 Bite Cells Not Reportable 12/19/20 18:13 Crenated Cell Not Reportable 12/19/20 18:13 Elliptocytes Not Reportable 12/19/20 18:13 Acanthocytes (Spur) Not Reportable 12/19/20 18:13 Rouleaux Not Reportable 12/19/20 18:13 Hemoglobin C Crystals Not Reportable 12/19/20 18:13 Schistocytes Not Reportable 12/19/20 18:13 Malaria parasites Not Reportable 12/19/20 18:13 Mian Bodies Not Reportable 12/19/20 18:13 Hem Pathologist Commnt No 12/19/20 18:13 PT 14.1 Sec. (12.2-14.9) 12/19/20 18:13 INR 0.98 (0.87-1.13) 12/19/20 18:13 APTT 24.1 Sec. (24.2-36.6) L 12/19/20 18:13 ABG pH 7.347 pH Units (7.350-7.450) L 12/20/20 11:39 POC ABG pCO2 64.9 mmHg (32.0-48.0) H 12/20/20 00:46 ABG pCO2 66.2 mm Hg 12/20/20 11:39 POC ABG pO2 31.9 mmHg (83-108) L 12/20/20 00:46 ABG pO2 167.6 mm Hg (80.0-90.0) H 12/20/20 11:39 POC ABG HCO3 31.9 12/20/20 00:46 ABG HCO3 35.5 mmol/L (20.0-26.0) H 12/20/20 11:39 ABG O2 Saturation 98.9 % (95.0-99.0) 12/20/20 11:39 POC ABG Base Excess 3.7 12/20/20 00:46 ABG Base Excess 7.7 mmol/L (-2.0-3.0) H 12/20/20 11:39 ABG Hemoglobin 13.0 gm/dl (14.0-18.0) L 12/20/20 11:39 ABG Oxyhemoglobin 97.2 (94-98) 12/20/20 00:46 ABG Carboxyhemoglobin 1.2 % (0.0-5.0) 12/20/20 11:39 ABG Methemoglobin 0.5 % (0.0-1.5) 12/20/20 11:39 ABG Sodium 134.6 mmol/L (136.0-145.0) L 12/20/20 00:46 ABG Potassium 4.9 mmol/L (3.40-4.50) H 12/20/20 00:46 ABG Chloride 96.0 mmol/L (98-107) L 12/20/20 00:46 ABG Glucose 179 mg/dL (65-95) H 12/20/20 00:46 Oxyhemoglobin 97.2 % (95.0-99.0) 12/20/20 11:39 Carboxyhemoglobin 0.2 (0.5-1.5) L 12/20/20 00:46 FiO2 36 % 12/20/20 11:39 FiO2 % 40 12/20/20 00:46 Sodium 141 mmol/L (137-145) 12/22/20 04:30 Potassium 5.0 mmol/L (3.6-5.0) 12/22/20 04:30 Chloride 96.0 mmol/L (98-107) L 12/22/20 04:30 Carbon Dioxide 38 mmol/L (22-30) H 12/22/20 04:30 Anion Gap 12 mmol/L 12/22/20 04:30 BUN 23 mg/dL (9-20) H 12/22/20 04:30 Creatinine 0.7 mg/dL (0.8-1.3) L 12/22/20 04:30 Estimated GFR > 60 ml/min 12/22/20 04:30 BUN/Creatinine Ratio 33 % 12/22/20 04:30 Glucose 132 mg/dL (75-100) H 12/22/20 04:30 POC Glucose 111 mg/dL (70-105) H 12/22/20 12:22 Lactic Acid 1.50 mmol/L (0.7-2.0) 12/19/20 18:13 Calcium 8.7 mg/dL (8.4-10.2) 12/22/20 04:30 Magnesium 1.90 mg/dL (1.7-2.3) 12/19/20 18:13 Total Bilirubin 0.30 mg/dL (0.1-1.2) 12/19/20 18:13 AST 21 units/L (5-40) 12/19/20 18:13 ALT 27 units/L (7-56) 12/19/20 18:13 Alkaline Phosphatase 84 units/L (35-129) 12/19/20 18:13 Troponin T < 0.010 ng/mL (0.00-0.029) 12/19/20 18:13 Total Protein 7.0 g/dL (6.3-8.2) 12/19/20 18:13 Albumin 3.9 g/dL (3.9-5) 12/19/20 18:13 Albumin/Globulin Ratio 1.3 % 12/19/20 18:13 Arterial Blood Glucose 179 mg/dL (65-95) H 12/20/20 00:46 Coronavirus (PCR) Negative (Negative) 12/20/20 Unknown Microbiology: Microbiology 12/19/20 18:13 Peripheral/Venous Blood Culture - Preliminary NO GROWTH AFTER 48 HOURS 12/19/20 18:13 Peripheral/Venous Blood Culture - Preliminary NO GROWTH AFTER 48 HOURS [place]/IV: Voiding Method Urinal Active Medications - Current Medications Current Medications: Generic Name Dose Route Start Last Admin Trade Name Freq PRN Reason Stop Dose Admin Acetaminophen 650 mg 12/20/20 00:52 12/22/20 07:59 Acetaminophen 325 Mg Tab PO 650 mg Q4H PRN Administration Pain MILD(1-3)/Fever >100.5/GIBSON Albuterol 2.5 mg 12/20/20 00:52 Albuterol 2.5 Mg/3 Ml Nebu IH Q3HRT PRN Shortness Of Breath Albuterol/Ipratropium 1 ampul 12/21/20 04:00 12/22/20 16:39 Ipratropium/Albuterol Sulfate 3 Ml Ampul.Neb IH 1 ampul Q4HRT DIAMOND Administration Heparin Sodium (Porcine) 5,000 unit 12/20/20 06:00 12/22/20 13:50 Heparin 5,000 Unit/1 Ml Vial SUB-Q 5,000 unit Q8HR DIAMOND Administration Magnesium Hydroxide 30 ml 12/20/20 00:52 Magnesium Hydroxide (Mom) Oral Liqd Udc PO Q4H PRN Constipation Methylprednisolone Sodium Succinate 40 mg 12/20/20 06:00 12/22/20 13:50 Methylprednisolone Sod Succinate 40 Mg/1 Ml Inj IV 40 mg Q8HR DIAMOND Administration Montelukast Sodium 10 mg 12/22/20 22:00 Montelukast 10 Mg Tab PO HS [facility] Ondansetron HCl 4 mg 12/20/20 00:52 Ondansetron 4 Mg/2 Ml Inj IV Q8H PRN Nausea And Vomiting Oxycodone/Acetaminophen 1 tab 12/22/20 11:00 Oxycodone /Acetaminophen 5-325mg Tab PO Q8H PRN Pain, Moderate (4-6) Senna 17.2 mg 12/23/20 22:00 Sennosides 8.6 Mg Tab PO QHS DIAMOND Sodium Chloride 10 ml 12/20/20 10:00 12/22/20 12:57 Sodium Chloride 0.9% 10 Ml Flush Syringe IV 10 ml BID DIAMOND Administration Sodium Chloride 10 ml 12/20/20 00:52 Sodium Chloride 0.9% 10 Ml Flush Syringe IV PRN PRN LINE FLUSH
[2020-12-22] MEDS ORDERED: MONTELUKAST 10 MG TAB PO SCH (22:00)
[2020-12-23] MEDS: IPRATROPIUM/ALBUTEROL SULFATE 3 ML AMPUL.NEB IH SCH ×5 (03:58→20:42)
[2020-12-23] MEDS: HEPARIN 5,000 UNIT/1 ML VIAL SUB-Q SCH (05:26)
[2020-12-23] MEDS: methylPREDNISolone Sod Succinate 40 MG/1 ML INJ IV SCH (05:26)
[2020-12-23 05:29] LABS: Hematocrit 40.2 % (35.5-45.6); Hemoglobin 12.6 gm/dl (11.8-15.2); Mean Corpuscular HGB Conc 31 % (32-34); Mean Corpuscular Volume 81 fl (84-94); Platelet Count 353 K/mm3 (140-440); Red Blood Count 4.95 M/mm3 (3.65-5.03); Red Cell Distribution Width 15.2 % (13.2-15.2)
[2020-12-23 05:45] LABS: BUN/Creatinine Ratio 30; Blood Urea Nitrogen 24 mg/dL (9-20); Calcium 8.7 mg/dL (8.4-10.2); Hemolysis Index 8
--- NOTE | 2020-12-23 10:46 | Electrocardiograph Report ---
[facility] Test Date: 2020-12-19 Test Time: 17:57:05 Pat Name: SCAR CRUZ Department: Room: A256 Gender: M Voice Engineer: GP : [id number] Requested By: FLASH BACH Order Number: [id number] Reading MD: Lazara Valles Measurements Intervals [place] Rate: 106 P: 91 [place]: 146 QRS: 80 QRSD: 87 T: 61 QT: 334 QTc: 443 Interpretive Statements Sinus tachycardia No previous ECG available for comparison Electronically Signed On 12-23-2020 10:45:53 EST by Lazara Valles
--- NOTE | 2020-12-23 12:05 | Progress Note ---
Assessment and Plan Assessment and plan: This is a 60-year-old male with sarcoidosis and asthma admitted with acute hypoxic respiratory failure and acute asthma exacerbation. Neuro: NAD -Patient is alert and oriented x4, moves all extremities -Avoid delirium -Maintain sleep-wake cycle -Reorientation as needed -Analgesics as needed Cardio: NAD -Blood pressure monitor per protocol -Patient is in sinus rhythm on monitor normotensive Pulm: Acute Hypoxic Respiratory Failure, Acute Asthma Exacerbation, h/o sarcodosis -s/p continuous BIPAP -BiPAP prn -Supplemental oxygenation as needed -Pulmonary hygiene -12/19 CTA chest- neg PE. Chronic changes at the lungs, pulmonary arteries and mediastinum/isidoro are stable -Solu-Medrol 40 mg every 8 started on 12/20 -changed to PO for taper off -Albuterol as needed -Restarted home Singulair GI: NAD -Patient is on regular diet -24 hours -1300 mL -BR: Senokot -PPI : NAD -Trend BMP -Intervene with electrolytes as needed ID: NAD -Monitor fever and WBC curve Endo: NAD -Avoid hypoglycemia Heme: NAD -lovenox subq -SCD to BLE while in bed -Transfuse to hemoglobin less than 7 -Trend CBC The high probability of a clinically significant, sudden or life threatening deterioration of the [Respiratory] system(s) required my full and direct attention, intervention and personal management. The aggregate critical care time was [60] minutes. This time is in addition to time spent performing reported procedures but includes the following: [x] Data Review and interpretation [x] Patient assessment and monitoring of vital signs [x] Documentation [x] Medication orders and management Disposition Plan: transfer to floor Total Time Spent with Patient (Minutes): 60 History Interval history: This is a 60-year-old male with past medical history of sarcoidosis and asthma presents to the emergency room complaining of shortness of breath X 24hours. Patient was found hypoxic in the ED requiring Bipap. Upon arrival in the emergency room he was in respiratory distress, found to be wheezing and subseque ntly placed on BiPAP and he had multiple rounds of nebulizing treatments and IV steroid. Work-up in the emergency room revealed hypoxia and a CT angiogram was negative for pneumonia but showed chronic lung changes, pulmonary arteries and mediastinum/isidoro which were stable. Pt. was admitted for acute hypoxic respiratory failure and acute asthma exacerbation. Hospital Course to Date 12/20/2020. Continue bronchodilators/nebulizers. Continue IV steroids. Pulmonary consultation pending. Continue empiric antibiotics for now for possible bronchitis. Patient currently requiring 100% nonrebreather. Continue BiPAP as clinically indicated. 12/21/20- Patient on 4L NC this am, in stable condition. Continue current treatment- Nebx treatment, and IV steroids for now. Wean O2 supplement as tolerated for SPO2 above 92%. Patient is stable for transfer to the floor. 12/22: No acute events overnight. Awaiting transfer to floor. Remains on NC 12/23: no acute events overnight. family to visit today. on RA. waiting transfer to floor Hospitalist Physical - Constitutional Vitals: Temp Pulse Resp BP Pulse Ox 97.7 F 92 H 27 H 151/76 90 12/23/20 04:00 12/23/20 11:28 12/23/20 11:28 12/23/20 11:00 12/23/20 11:00 General appearance: Present: no acute distress, well-nourished - EENT Eyes: Present: PERRL, EOM intact ENT: hearing intact, clear oral mucosa, dentition normal - Neck Neck: Present: supple, normal ROM - Respiratory Respiratory effort: normal Respiratory: bilateral: wheezing - Cardiovascular Rhythm: regular Heart Sounds: Present: S1 & S2. Absent: systolic murmur, diastolic murmur - Extremities Extremities: no ischemia, pulses intact, pulses symmetrical, No edema, normal temperature, normal color, Full ROM Peripheral Pulses: within normal limits - Abdominal General gastrointestinal: soft, non-tender, non-distended, normal bowel sounds - Integumentary Integumentary: Present: warm, dry - Psychiatric Psychiatric: cooperative - Neurologic Neurologic: CNII-XII intact, no focal deficits, moves all extremities - Allied Health Allied health notes reviewed: nursing, RT, social work HEART Score - HEART Score Troponin: Troponin T < 0.010 ng/mL (0.00-0.029) 12/19/20 18:13 Results - Labs CBC & Chem 7: 12/23/20 04:45 12/23/20 04:45 Labs: Laboratory Last Values WBC 8.1 K/mm3 (4.5-11.0) 12/23/20 04:45 RBC 4.95 M/mm3 (3.65-5.03) 12/23/20 04:45 Hgb 12.6 gm/dl (11.8-15.2) 12/23/20 04:45 Hct 40.2 % (35.5-45.6) 12/23/20 04:45 MCV 81 fl (84-94) L 12/23/20 04:45 MCH 25 pg (28-32) L 12/23/20 04:45 MCHC 31 % (32-34) L 12/23/20 04:45 RDW 15.2 % (13.2-15.2) 12/23/20 04:45 Plt Count 353 K/mm3 (140-440) 12/23/20 04:45 Lymph % (Auto) 2.1 % (13.4-35.0) L 12/21/20 07:00 Coal % (Auto) 8.4 % (0.0-7.3) H 12/21/20 07:00 Eos % (Auto) 0.0 % (0.0-4.3) 12/21/20 07:00 Baso % (Auto) 0.1 % (0.0-1.8) 12/21/20 07:00 Lymph # (Auto) 0.2 K/mm3 (1.2-5.4) L 12/21/20 07:00 Coal # (Auto) 0.8 K/mm3 (0.0-0.8) 12/21/20 07:00 Eos # (Auto) 0.0 K/mm3 (0.0-0.4) 12/21/20 07:00 Baso # (Auto) 0.0 K/mm3 (0.0-0.1) 12/21/20 07:00 Add Manual Diff Complete 12/19/20 18:13 Total Counted 100 12/19/20 18:13 Seg Neutrophils % 89.4 % (40.0-70.0) H 12/21/20 07:00 Seg Neuts % (Manual) 83.0 % (40.0-70.0) H 12/19/20 18:13 Lymphocytes % (Manual) 6.0 % (13.4-35.0) L 12/19/20 18:13 Monocytes % (Manual) 8.0 % (0.0-7.3) H 12/19/20 18:13 Eosinophils % (Manual) 3.0 % (0.0-4.3) 12/19/20 18:13 Nucleated RBC % 1.0 % (0.0-0.9) H 12/19/20 18:13 Seg Neutrophils # 8.9 K/mm3 (1.8-7.7) H 12/21/20 07:00 Seg Neutrophils # Man 7.7 K/mm3 (1.8-7.7) 12/19/20 18:13 Band Neutrophils # 0.0 K/mm3 12/19/20 18:13 Lymphocytes # (Manual) 0.6 K/mm3 (1.2-5.4) L 12/19/20 18:13 Abs React Lymphs (Man) 0.0 K/mm3 12/19/20 18:13 Monocytes # (Manual) 0.7 K/mm3 (0.0-0.8) 12/19/20 18:13 Eosinophils # (Manual) 0.3 K/mm3 (0.0-0.4) 12/19/20 18:13 Basophils # (Manual) 0.0 K/mm3 (0.0-0.1) 12/19/20 18:13 Metamyelocytes # 0.0 K/mm3 12/19/20 18:13 Myelocytes # 0.0 K/mm3 12/19/20 18:13 Promyelocytes # 0.0 K/mm3 12/19/20 18:13 Blast Cells # 0.0 K/mm3 12/19/20 18:13 WBC Morphology Not Reportable 12/19/20 18:13 Hypersegmented Neuts Not Reportable 12/19/20 18:13 Hyposegmented Neuts Not Reportable 12/19/20 18:13 Hypogranular Neuts Not Reportable 12/19/20 18:13 Smudge Cells Not Reportable 12/19/20 18:13 Toxic Granulation Not Reportable 12/19/20 18:13 Toxic Vacuolation Not Reportable 12/19/20 18:13 Dohle Bodies Not Reportable 12/19/20 18:13 Pelger-Huet Anomaly Not Reportable 12/19/20 18:13 Charissa Rods Not Reportable 12/19/20 18:13 Platelet Estimate Consistent w auto 12/19/20 18:13 Clumped Platelets Not Reportable 12/19/20 18:13 Plt Clumps, EDTA Not Reportable 12/19/20 18:13 Large Platelets Not Reportable 12/19/20 18:13 Giant Platelets Not Reportable 12/19/20 18:13 Platelet Satelliting Not Reportable 12/19/20 18:13 Plt Morphology Comment Not Reportable 12/19/20 18:13 RBC Morphology Not Reportable 12/19/20 18:13 Dimorphic RBCs Not Reportable 12/19/20 18:13 Polychromasia Not Reportable 12/19/20 18:13 Hypochromasia 1+ 12/19/20 18:13 Poikilocytosis Not Reportable 12/19/20 18:13 Anisocytosis Not Reportable 12/19/20 18:13 Microcytosis Not Reportable 12/19/20 18:13 Macrocytosis Not Reportable 12/19/20 18:13 Spherocytes Not Reportable 12/19/20 18:13 Pappenheimer Bodies Not Reportable 12/19/20 18:13 Sickle Cells Not Reportable 12/19/20 18:13 Target Cells Not Reportable 12/19/20 18:13 Tear Drop Cells Not Reportable 12/19/20 18:13 Ovalocytes Not Reportable 12/19/20 18:13 Helmet Cells Not Reportable 12/19/20 18:13 [place] Bodies Not Reportable 12/19/20 18:13 [place] Rings Not Reportable 12/19/20 18:13 [place] Cells Not Reportable 12/19/20 18:13 Bite Cells Not Reportable 12/19/20 18:13 Crenated Cell Not Reportable 12/19/20 18:13 Elliptocytes Not Reportable 12/19/20 18:13 Acanthocytes (Spur) Not Reportable 12/19/20 18:13 Rouleaux Not Reportable 12/19/20 18:13 Hemoglobin C Crystals Not Reportable 12/19/20 18:13 Schistocytes Not Reportable 12/19/20 18:13 Malaria parasites Not Reportable 12/19/20 18:13 Mian Bodies Not Reportable 12/19/20 18:13 Hem Pathologist Commnt No 12/19/20 18:13 PT 14.1 Sec. (12.2-14.9) 12/19/20 18:13 INR 0.98 (0.87-1.13) 12/19/20 18:13 APTT 24.1 Sec. (24.2-36.6) L 12/19/20 18:13 ABG pH 7.347 pH Units (7.350-7.450) L 12/20/20 11:39 POC ABG pCO2 64.9 mmHg (32.0-48.0) H 12/20/20 00:46 ABG pCO2 66.2 mm Hg 12/20/20 11:39 POC ABG pO2 31.9 mmHg (83-108) L 12/20/20 00:46 ABG pO2 167.6 mm Hg (80.0-90.0) H 12/20/20 11:39 POC ABG HCO3 31.9 12/20/20 00:46 ABG HCO3 35.5 mmol/L (20.0-26.0) H 12/20/20 11:39 ABG O2 Saturation 98.9 % (95.0-99.0) 12/20/20 11:39 POC ABG Base Excess 3.7 12/20/20 00:46 ABG Base Excess 7.7 mmol/L (-2.0-3.0) H 12/20/20 11:39 ABG Hemoglobin 13.0 gm/dl (14.0-18.0) L 12/20/20 11:39 ABG Oxyhemoglobin 97.2 (94-98) 12/20/20 00:46 ABG Carboxyhemoglobin 1.2 % (0.0-5.0) 12/20/20 11:39 ABG Methemoglobin 0.5 % (0.0-1.5) 12/20/20 11:39 ABG Sodium 134.6 mmol/L (136.0-145.0) L 12/20/20 00:46 ABG Potassium 4.9 mmol/L (3.40-4.50) H 12/20/20 00:46 ABG Chloride 96.0 mmol/L (98-107) L 12/20/20 00:46 ABG Glucose 179 mg/dL (65-95) H 12/20/20 00:46 Oxyhemoglobin 97.2 % (95.0-99.0) 12/20/20 11:39 Carboxyhemoglobin 0.2 (0.5-1.5) L 12/20/20 00:46 FiO2 36 % 12/20/20 11:39 FiO2 % 40 12/20/20 00:46 Sodium 139 mmol/L (137-145) 12/23/20 04:45 Potassium 4.3 mmol/L (3.6-5.0) 12/23/20 04:45 Chloride 94.7 mmol/L (98-107) L 12/23/20 04:45 Carbon Dioxide 35 mmol/L (22-30) H 12/23/20 04:45 Anion Gap 14 mmol/L 12/23/20 04:45 BUN 24 mg/dL (9-20) H 12/23/20 04:45 Creatinine 0.8 mg/dL (0.8-1.3) 12/23/20 04:45 Estimated GFR > 60 ml/min 12/23/20 04:45 BUN/Creatinine Ratio 30 % 12/23/20 04:45 Glucose 122 mg/dL (75-100) H 12/23/20 04:45 POC Glucose 111 mg/dL (70-105) H 12/22/20 12:22 Lactic Acid 1.50 mmol/L (0.7-2.0) 12/19/20 18:13 Calcium 8.7 mg/dL (8.4-10.2) 12/23/20 04:45 Magnesium 1.90 mg/dL (1.7-2.3) 12/19/20 18:13 Total Bilirubin 0.30 mg/dL (0.1-1.2) 12/19/20 18:13 AST 21 units/L (5-40) 12/19/20 18:13 ALT 27 units/L (7-56) 12/19/20 18:13 Alkaline Phosphatase 84 units/L (35-129) 12/19/20 18:13 Troponin T < 0.010 ng/mL (0.00-0.029) 12/19/20 18:13 Total Protein 7.0 g/dL (6.3-8.2) 12/19/20 18:13 Albumin 3.9 g/dL (3.9-5) 12/19/20 18:13 Albumin/Globulin Ratio 1.3 % 12/19/20 18:13 Arterial Blood Glucose 179 mg/dL (65-95) H 12/20/20 00:46 Coronavirus (PCR) Negative (Negative) 12/20/20 Unknown Microbiology: Microbiology 12/19/20 18:13 Peripheral/Venous Blood Culture - Preliminary NO GROWTH AFTER 72 HOURS 12/19/20 18:13 Peripheral/Venous Blood Culture - Preliminary NO GROWTH AFTER 72 HOURS [place]/IV: Voiding Method Urinal Active Medications - Current Medications Current Medications: Generic Name Dose Route Start Last Admin Trade Name Freq PRN Reason Stop Dose Admin Acetaminophen 650 mg 12/20/20 00:52 12/22/20 07:59 Acetaminophen 325 Mg Tab PO 650 mg Q4H PRN Administration Pain MILD(1-3)/Fever >100.5/GIBSON Albuterol 2.5 mg 12/20/20 00:52 Albuterol 2.5 Mg/3 Ml Nebu IH Q3HRT PRN Shortness Of Breath Albuterol/Ipratropium 1 ampul 12/21/20 04:00 12/23/20 11:28 Ipratropium/Albuterol Sulfate 3 Ml Ampul.Neb IH 1 ampul Q4HRT DIAMOND Administration Heparin Sodium (Porcine) 5,000 unit 12/20/20 06:00 12/23/20 05:26 Heparin 5,000 Unit/1 Ml Vial SUB-Q 5,000 unit Q8HR DIAMOND Administration Magnesium Hydroxide 30 ml 12/20/20 00:52 Magnesium Hydroxide (Mom) Oral Liqd Udc PO Q4H PRN Constipation Montelukast Sodium 10 mg 12/22/20 22:00 12/22/20 21:02 Montelukast 10 Mg Tab PO 10 mg HS DIAMOND Administration Ondansetron HCl 4 mg 12/20/20 00:52 Ondansetron 4 Mg/2 Ml Inj IV Q8H PRN Nausea And Vomiting Oxycodone/Acetaminophen 1 tab 12/22/20 11:00 Oxycodone /Acetaminophen 5-325mg Tab PO Q8H PRN Pain, Moderate (4-6) Prednisone 40 mg 12/24/20 10:00 Prednisone 20 Mg Tab PO 12/24/20 10:01 QDAY DIAMOND Senna 17.2 mg 12/23/20 22:00 Sennosides 8.6 Mg Tab PO QHS DIAMOND Sodium Chloride 10 ml 12/20/20 10:00 12/23/20 09:32 Sodium Chloride 0.9% 10 Ml Flush Syringe IV 10 ml BID DIAMOND Administration Sodium Chloride 10 ml 12/20/20 00:52 Sodium Chloride 0.9% 10 Ml Flush Syringe IV PRN PRN LINE FLUSH
--- NOTE | 2020-12-23 16:09 | Discharge Summary ---
Providers - Providers Date of Admission: 12/20/20 05:41 Date of discharge: 12/23/20 Attending physician: MILTON RAM MD Primary care physician: [employer] Hospitalization Condition: Stable Hospital course: This is a 60-year-old male with past medical history of sarcoidosis and asthma presents to the emergency room complaining of shortness of breath X 24hours. Patient was found hypoxic in the ED requiring Bipap. Upon arrival in the emergency room he was in respiratory distress, found to be wheezing and subsequently placed on BiPAP and he had multiple rounds of nebulizing treatments and IV steroid. Work-up in the emergency room revealed hypoxia and a CT angiogram was negative for pneumonia but showed chronic lung changes, pulmonary arteries and mediastinum/isidoro which were stable. Pt. was admitted for acute hypoxic respiratory failure and acute asthma exacerbation. On 12/20 pulmonology was consulted, antibiotics were continued for possible bronchitis and patient was on 100% nonrebreather we will continue BiPAP as clinic indicated. On 12/21 patient was on for his nasal cannula and stable enough to be transferred to the floor. On 12/23 patient was weaned off of supplemental oxygenation and remained in room air throughout the day. In the evening the decision was made to discharge the patient home. Patient will be discharged home to continue self care and will need to follow-up with his primary care physician and pipe fitter supervisor within 1 to 2 weeks of discharge. Patient verbalized understanding. Patient will be discharged with 1 dose of 40 mg of prednisone to be taken tomorrow on 12/24. Assessment and Plan Pulm: Acute Hypoxic Respiratory Failure, Acute Asthma Exacerbation, h/o sarcodos is -s/p continuous BIPAP -12/19 CTA chest- neg PE. Chronic changes at the lungs, pulmonary arteries and mediastinum/isidoro are stable -Solu-Medrol 40 mg every 8 started on 12/20 and was converted to p.o. and will be stopped on 12/24. -changed to PO for taper off -We will need to continue home nebulizers -Restarted home Singulair -We will need to follow-up with home pipe fitter supervisor Disposition: 01 HOME / SELF CARE / HOMELESS Final Discharge Diagnosis (Prints w/discharge instructions): Acute Hypoxic Respiratory Failure, Acute Asthma Exacerbation Time spent for discharge: 30 Core Measure Documentation - Palliative Care Palliative Care/ Comfort Measures: Not Applicable - Core Measures Any of the following diagnoses?: none Exam - Constitutional Vitals: Temp Pulse Resp BP Pulse Ox 97.7 F 83 28 H 131/83 94 12/23/20 04:00 12/23/20 15:54 12/23/20 15:54 12/23/20 12:00 12/23/20 12:00 General appearance: Present: no acute distress - EENT Eyes: Present: PERRL, EOM intact ENT: hearing intact, clear oral mucosa, dentition normal - Neck Neck: Present: supple, normal ROM - Respiratory Respiratory effort: normal Respiratory: bilateral: CTA - Cardiovascular Rhythm: regular Heart Sounds: Present: S1 & S2. Absent: systolic murmur, diastolic murmur - Extremities Extremities: no ischemia, pulses intact, pulses symmetrical, No edema, normal temperature, normal color, Full ROM Peripheral Pulses: within normal limits - Abdominal General gastrointestinal: Present: soft, non-tender, non-distended, normal bowel sounds - Integumentary Integumentary: Present: warm, dry - Musculoskeletal Musculoskeletal: strength equal bilaterally - Psychiatric Psychiatric: appropriate mood/affect, intact judgment & insight, cooperative - Neurologic Neurologic: CNII-XII intact, no focal deficits, moves all extremities - Allied Health Allied health notes reviewed: nursing, RT, social work Plan Activity: advance as tolerated Diet: regular Special Instructions: smoking cessation Follow up with: PRIMARY CARE, [Primary Care Provider] - 3-5 Days Prescriptions: predniSONE [Deltasone] 40 mg PO QDAY #1 tablet
[2020-12-23 17:06] VITALS: BP 147/78
[2020-12-23] MEDS ORDERED: ENOXAPARIN 40 MG/0.4 ML INJ SUB-Q SCH (22:00)
[2020-12-23] MEDS ORDERED: SENNOSIDES 8.6 MG TAB PO SCH (22:00)
[2020-12-24] MEDS ORDERED: predniSONE 20 MG TAB PO SCH (10:00)
== END 2020-12-23 18:30 | disposition home or self-care (01) | DRG 189 ==
LOC: ED 17:55 → IMCU 12-20 05:41 → CC1 12-20 08:44
PROVIDERS: ADMIT Internal Medicine Geriatric Medicine; ATTEND Internal Medicine
PROC: 5A09357 Assistance with Respiratory Ventilation, Less than 24 Consecutive Hours, Continuous Positive Airway Pressure (ICD-10-PCS; principal; 2020-12-20)
PROC: 4A033R1 Measurement of Arterial Saturation, Peripheral, Percutaneous Approach (ICD-10-PCS; 2020-12-20)
DX: J96.01 Acute respiratory failure with hypoxia (principal); J45.901 Unspecified asthma with (acute) exacerbation; D86.9 Sarcoidosis, unspecified; Z20.822 Contact with and (suspected) exposure to COVID-19; E87.5 Hyperkalemia
CPT/HCPCS: 36415; 36600; 71045; 71275; 80048; 80053; 82140; 82803; 82805; 82962; 83735; 84484; 85007; 85025; 85027; 85610; 85730; 87040; 90686; 93005; 94640; 94760; G0378; J0692; J1644; J2920; J2930; J3475; Q9967; U0003

== ENCOUNTER → 2020-12-19 | Emergency (ER) | payer OTHER ==
[~2020-12-19] MED LIST: IPRATROPIUM/ALBUTEROL SULFATE 3 ML AMPUL.NEB IH ONE
[2020-12-19 18:18] VITALS: BP 165/103
[2020-12-20 15:12] LABS: ABG HCO3 TNR mmol/L (20.0-26.0); ABG PCO2 TNR mm Hg; ABG PH TNR pH Units (7.350-7.450); ABG PO2 TNR mm Hg (80.0-90.0)
[2020-12-20 15:13] LABS: ABG Base Excess TNR mmol/L (-2.0-3.0); ABG Methemoglobin TNR % (0.0-1.5); ABG Oxygen Saturation TNR % (95.0-99.0)
== END ==
LOC: ED 17:47
DX: R06.02 Shortness of breath (principal)
CPT/HCPCS: 82803; 94644